=== PATIENT | male | born 1995 | race Caucasian/White ===

== ENCOUNTER 2023-11-27 14:01 | Emergency (ER) | payer BC, SELFPAY ==
[2023-11-27 14:09] VITALS: BP 156/94
[2023-11-27] MEDS: AUGMENTIN 875 MG/125 MG 1 TABLET PO (16:28)
[2023-11-27] MEDS: ADACEL 0.5 ML IM (16:28)
--- NOTE | 2023-11-27 16:58 | ED.GENMED ---
History of Present Illness
General
Chief Complaint: Skin Surface Trauma
Source: patient
Exam Limitations: none
Time Seen by Provider: 11/27/23 15:05
Travel History
Have you had any contact with someone who has COVID-19?: No
Do you have any symptoms of coronavirus? Fever > 100 degrees, chills, cough, shortness of breath, sore throat, loss of taste or smell, muscle aches, or headache?: No
History of Present Illness
History of Present Illness:
Patient to ED for dog bite to his left distal 5th finger. Bit by family dog. Dog is UTD with rabies. According to patient, dog has bit family before. States today dog was attacking his father and he tried to intervene. Brought to ED via EMS for
eval.
Past History
Past History
ED Past Medical History: None
ED Past Surgical History: None
Review of Systems
Review of Systems
Allergies reviewed?: Yes
All Other Systems: ROS reviewed and negative except as documented in HPI and ROS
Constitutional: Reports no symptoms
Skin: Reports other (Dog bite to left distal 5th finger)
Neurological: Reports no symptoms
Psychiatric: Reports no symptoms
Phy Exam
General Physical Exam
General Presentation: well appearing and mild distress
General age: appears stated age
General Skin: warm and dry
General Habitus: normal
Musculoskeletal Exam
Musculoskeletal Exam: full ROM and neuro vasc intact
Skin Exam
Skin Exam: normal color, warm/dry, no rash and other (dog bite left distal 5th finger. Near amputation of finger tip. Tip of phalanx exposed.)
Psychiatric Exam
Psychiatric Exam: normal mood/affect
Course
Orders/Labs/Results
Orders:
Orders
11/27/23 15:28
Amoxicillin 875 mg/Clav 125 mg [Augmentin 875 mg/125 mg] 1 tablet PO NOW STA
Tetanus/Diphth/Acelpertussis [Adacel] 0.5 ml IM .ONCE ONE
Finger(s)/Thumb 2 View Lt [CR Finger(s)/thumb Min 2 Vw Lt] Urgent
Comment:
Reason For Exam: dog bite left distl 5th finger
Vital Signs
Initial and Last Documented VS:
Initial Vital Signs
Temp Pulse Resp BP Pulse Ox
98.1 F 103 16 156/94 95
11/27/23 14:09 11/27/23 14:09 11/27/23 14:09 11/27/23 14:09 11/27/23 14:09
Last Documented Vital Signs
Temp Pulse Resp BP Pulse Ox
98.1 F 103 16 156/94 95
11/27/23 14:09 11/27/23 14:09 11/27/23 14:11/27/23 14:11/27/23 14:09
Procedures
Laceration Closure
Left Distal Fifth Finger:
Status of Wound: bite
Size of Wound in cm: 1.75
Description of Wound Edges: sharp
Preparation: cleaned with saline and cleaned with Betadine
Anesthesia: 1% Lidocaine and Digital-Regional
Revision/Debridement: routine- no revision and extensive revision
Wound exploration: explored to base- no FB
Type of Closure: single layer closure
Skin Closure Material: 5-0 prolene
*Radiology
Radiology exam reviewed: radiology read reviewed
*Pulse Oximetry
Patient hypoxic: no
*Critical Care Note
Total Time (30-74mins, 75-104mins- exclusive of procedures): Not Applicable
Update Note
Update Note:
Dr. Flynn notified of finger injury. Pictures of wound sent via tiger text. Wound cleansed in dept, tip repositioned and sutured. WIll follow up with Dr. Flynn in office. Antibiotics started in dept. Givn instructions on s/s to return to ED and
he is agreeable to plan.
ED Attending Note
-
Portions of this chart may have been created with voice recognition software.� Occasional wrong word or��sound alike� substitutions may have occurred due to the inherent limitations of voice recognition software.
Discharge Plan
Departure
Patient Disposition: Home (Routine Discharge)
Date of Disposition: 11/27/23
Time of Disposition: 16:55
Patient with high blood pressure during this ER visit?: No
Condition: Good
Covid-19: Not Applicable
Discharge Problem:
Dog bite of finger, Finger fracture
Instructions: Animal Bites (DC), Laceration Repair With Stitches (DC)
Prescriptions:
New
amoxicillin-pot clavulanate 875-125 mg tablet
1 tab PO BID Qty: 14 0RF
Referrals:
NONE,* [Family Provider] -
Kam Flynn MD [Active] - (Call tomorrow to schedule your appointment.)
Activity Restrictions/Additional Instructions:
Follow up with Dr. Flynn in the office for further evaluation of your finger injury. Call in the AM to schedule your appointment.
Interventions
Interventions:
*ED COVID-19 Vaccine History Last Done: 11/27/23 14:09
ED-Skin Assessment Last Done: 11/27/23 14:53
Discharge Date and Time
Print Language: BANGLADESHI
Skin Exam
Bite
Left Distal Fifth Finger:
Type: animal
Skin has: full thickness laceration
Surrounding area around bite has: no evidence of erythema
Distal skin color and temperature: normal-warm & good color
Musculoskeletal Injury Exam
Musculoskeletal Injury Exam
Left Distal Fifth Finger:
Pain with Movement?: Moderate
Tender to palpation?: Moderate
Soft tissue swelling?: Mild
External deformity and angulation?: Moderate
Joint effusion?: None
Contusion?: None
Hematoma-local bleeding into tissue?: None
Crepitus with movement?: No
Joint instability?: No
Malalignment/deformity?: Yes
Range of motion: Limited
Distal skin color and temperature: normal-warm & good color
Capillary Refill: slightly delayed
Normal distal neurovascular exam?: Yes
Peripheral Pulses: radial (left): 3+
[2023-11-27] MEDS: MOTRIN 600 MG PO (17:12)
== END 2023-11-27 17:30 | disposition home or self-care (01) ==
LOC: EMR 14:01
PROVIDERS: EMERGENCY PHYSICIAN Emergency Medicine
DX: S62.637B Displaced fracture of distal phalanx of left little finger, initial encounter for open fracture (principal); W54.0XXA Bitten by dog, initial encounter; Z23 Encounter for immunization
CPT/HCPCS: 99283; 12001; 90471; 73140; 90715